=== PATIENT | female | born 1955 | race Two or more races ===

== ENCOUNTER 2018-08-24 19:09 | Inpatient (IN) | payer MEDICAID, OTHER ==
[~2018-08-24] VITALS: Ht 157.5 cm; Wt 121.7 kg
--- NOTE | 2018-08-24 19:30 | NUR ---
ACCOUNTING SYSTEM EXPERT: CHARGE/SUP AWARE OF FREQUENT FALLS AND UNSAFE TO BE IN TRAIGE. PER CHARGE/SUP NO ROOM AVAILABLE. PT EDUCATED ON FALL PRECAUTIONS AND ASKED TO REMAIN IN WHEELCHAIR.
--- NOTE | 2018-08-24 19:39 | NUR ---
Xray to wait for CT C-spine clearance
[2018-08-24 19:54] LABS: BASOPHILS # (AUTO) 0.03 x10^3/uL (0-0.1); BASOPHILS % (AUTO) 0 % (0-1); EOSINOPHILS # (AUTO) 0.06 x10^3/uL (0-0.4); EOSINOPHILS % (AUTO) 1 % (1-7); LYMPHOCYTES # (AUTO) 4.45 x10^3/uL (1-3.4); LYMPHOCYTES % (AUTO) 52 % (22-44); MD NO; MEAN CORPUSCULAR HEMOGLOBIN 31.2 pg (27.0-34.8); MEAN CORPUSCULAR HGB CONC 33.4 g/dL (32.4-35.8); MEAN CORPUSCULAR VOLUME 93.4 fL (80-100); MEAN PLATELET VOLUME 7.5 fL (7.4-10.4); MONOCYTES # (AUTO) 0.46 x10^3/uL (0.2-0.8); MONOCYTES % (AUTO) 5 % (2-9); NEUTROPHILS # (AUTO) 3.53 x10^3/uL (1.8-6.8); NEUTROPHILS % (AUTO) 41 % (42-75); PLATELET COUNT 143 x10^3/uL (130-400); RED CELL DISTRIBUTION WIDTH 13.4 % (9.6-15.2)
[2018-08-24 20:08] LABS: ALBUMIN 3.6 g/dL (3.4-5.0); ANION GAP 7 mmol/L (5-15); CALCIUM 8.8 mg/dL (8.5-10.1); CHLORIDE 98 mmol/L (98-107)
[2018-08-24 20:16] LABS: ALANINE AMINOTRANSFERASE 30 U/L (12-78); ALKALINE PHOSPHATASE 106 U/L (45-117); BILIRUBIN,TOTAL 0.5 mg/dL (0.2-1.0); CREATININE 0.82 mg/dL (0.55-1.02); TOTAL PROTEIN 7.5 g/dL (6.4-8.2); TROPONIN I < 0.015 ng/mL (0.000-0.045)
--- NOTE | 2018-08-24 21:56 | NUR ---
PROVIDER TO BEDSIDE FOR PT EVAL, PT ON CARDIAC AND VS MONITORING. PT TO HAVE STAIGHT CATH FOR URINE.
--- NOTE | 2018-08-24 22:00 | NUR ---
EKG DONE IN TRIAGE.
--- NOTE | 2018-08-24 22:03 | NUR ---
VERBAL ORDER FROM SHRUTHI WALKER TO STRAIGHT CATH FOR URINE INSTEAD OF CLEAN CATCH.
[2018-08-24 22:24] LABS: MICROSCOPIC NOT IND
[2018-08-24] MEDS ORDERED: HYDROcodone/APAP 5/325 TABLET PO ONE (22:30)
[2018-08-24] MEDS ORDERED: HYDROcodone/APAP 5/325 TABLET ONE (22:30)
--- NOTE | 2018-08-24 22:37 | NUR ---
PT AMBULATED IN HALLWAY WITH STEADY GAIT, THIS RN STAND BY ASSIST. PT STATES SHE USES A WALKER OR CANE AT HOME, PT USED THIS RN FOR ASSISTANCE PRN WHILE WALKING. PT REPORTS HEAD SPINNING WHILE WALKING. PT RECIEVED PAIN MEDS WHEN BACK INTO BED, SEE EMASelvin NIETO MD.
--- NOTE | 2018-08-24 22:46 | NUR ---
NOTIFIED OF ROAD TEST. PT STATES SHE LIVES AT HOME BY HERSELF AND IS ABLE TO SUCCESSFULLY COMPLETE ADL'S, PT STATES HER NEIGHBOR HELPS OUT ONCE IN A WHILE. NOTIFIED.
--- NOTE | 2018-08-24 22:48 | NUR ---
PT TO BE ADMITTED.
--- NOTE | 2018-08-24 23:21 | NUR ---
MD TO BEDSIDE FOR UPDATE. IV IN PLACE. PT AWAITING ROOM ASSINGMENT.
[2018-08-24] MEDS ORDERED: TOPI50TA8 PO (23:41)
[2018-08-24] MEDS ORDERED: METO25TA35 PO (23:41)
[2018-08-24] MEDS ORDERED: INSU100C5 SQ-INSULIN (23:41)
[2018-08-24] MEDS ORDERED: INSU100V8 SQ (23:41)
[2018-08-24] MEDS ORDERED: CEFD300C37 PO (23:41)
[2018-08-24] MEDS ORDERED: METF500T17 PO ×2 (23:41)
[2018-08-24] MEDS ORDERED: LEVO150T5 PO (23:41)
[2018-08-24] MEDS ORDERED: GABA100C PO (23:41)
[2018-08-24] MEDS ORDERED: FLEC50TA25 PO (23:41)
[2018-08-24] MEDS ORDERED: FURO20TA3 PO (23:41)
--- NOTE | 2018-08-24 23:42 | NUR ---
MED LIST UPDATED. NO CHANGE TO PT. PT PLEASANT AND COOPERATIVE. WILL MONITOR.
[2018-08-25] VITALS (7 sets, daily range): BP systolic 117–148; BP diastolic 71–88
--- NOTE | 2018-08-25 | NUR ---
REPORT TO CHAPIN DUMONT. PT TO GO TO ROOM.
[2018-08-25] MEDS ORDERED: IBUPROFEN 600 MG TABLET PO PRN (01:00)
[2018-08-25] MEDS ORDERED: ENALAPRILAT 1.25 MG/ML, 2ML IVPush PRN (01:00)
[2018-08-25] MEDS ORDERED: DEXTROSE 50%, 50ML SYRINGE IVPush PRN (01:00)
[2018-08-25] MEDS ORDERED: POLYETHYLENE GLYCOL 17 GM PACKET PO PRN (01:00)
[2018-08-25] MEDS ORDERED: GLUCAGON 1 MG IM PRN (01:00)
[2018-08-25] MEDS ORDERED: DOCUSATE 100 MG CAPSULE PO PRN (01:00)
[2018-08-25] MEDS ORDERED: NITROGLYCERIN 0.4 MG BOTTLE (25 TABS) SL PRN (01:00)
[2018-08-25] MEDS ORDERED: INSULIN GLARGINE 100 UNITS/ML, PEN SQ-INSULIN SCH ×2 (01:30→21:00)
[2018-08-25] MEDS: ENOXAPARIN 40 MG/0.4 ML SQ SCH (02:07)
[2018-08-25 02:45] LABS: HEMOGLOBIN A1C 9.9 % (4.2-6.3)
[2018-08-25 05:27] LABS: CHLORIDE 100 mmol/L (98-107)
[2018-08-25 05:38] LABS: ALANINE AMINOTRANSFERASE 25 U/L (12-78); ALBUMIN 3.1 g/dL (3.4-5.0); ALKALINE PHOSPHATASE 94 U/L (45-117); ANION GAP 9 mmol/L (5-15); BILIRUBIN,TOTAL 0.5 mg/dL (0.2-1.0); CALCIUM 8.7 mg/dL (8.5-10.1); CREATININE 0.93 mg/dL (0.55-1.02); TOTAL PROTEIN 6.5 g/dL (6.4-8.2); TROPONIN I < 0.015 ng/mL (0.000-0.045)
[2018-08-25] MEDS ORDERED: LEVOTHYROXINE 50 MCG TABLET ONE (09:34)
[2018-08-25] MEDS: FLECAINIDE 50MG TABLET PO SCH ×2 (09:36→21:04)
[2018-08-25] MEDS: FUROSEMIDE 20 MG TABLET PO SCH (10:26)
[2018-08-25] MEDS: INSULIN LISPRO 100 UNITS/ML, PEN SQ-INSULIN SCH ×4 (10:26→21:16)
[2018-08-25] MEDS: LEVOTHYROXINE 150 MCG TABLET PO SCH (10:26)
[2018-08-25] MEDS: FAMOTIDINE 20 MG TABLET PO SCH ×2 (10:27→21:04)
[2018-08-25] MEDS: GABAPENTIN 100 MG CAPSULE PO SCH ×3 (10:27→21:04)
[2018-08-25] MEDS: TOPIRAMATE 25 MG TABLET PO SCH ×2 (10:27→21:05)
[2018-08-25] MEDS: METOPROLOL TARTRATE 25 MG TABLET PO SCH ×2 (10:27→21:04)
[2018-08-25] MEDS: metFORMIN 500 MG TABLET PO SCH (10:27)
[2018-08-25] MEDS: SODIUM CHLORIDE FLUSH 10ML SYR IVF SCH ×2 (10:28→21:05)
[2018-08-25] MEDS: INSULIN ASPART 70/30 100U/ML, PEN SQ-INSULIN SCH ×3 (10:49→17:00)
[2018-08-25] MEDS: CEFDINIR 300 MG CAPSULE PO SCH (15:00)
[2018-08-25] MEDS: ACETAMINOPHEN 325 MG TABLET PO PRN (16:25)
[2018-08-25 17:44] LABS: CLOSTRIDIUM DIFFICILE ANTIGEN NEGATIVE; CLOSTRIDIUM DIFFICILE TOXIN NEGATIVE (Negative)
[2018-08-25] MEDS ORDERED: metFORMIN 500 MG TABLET PO SCH (21:00)
[2018-08-26] MEDS: ENOXAPARIN 40 MG/0.4 ML SQ SCH (01:16)
[2018-08-26 02:00] VITALS: BP 111/66
[2018-08-26] MEDS: CEFDINIR 300 MG CAPSULE PO SCH (03:03)
[2018-08-26 07:36] VITALS: BP 98/58
[2018-08-26] MEDS: TOPIRAMATE 25 MG TABLET PO SCH (09:08)
[2018-08-26] MEDS: INSULIN ASPART 70/30 100U/ML, PEN SQ-INSULIN SCH ×3 (09:08→16:14)
[2018-08-26] MEDS: INSULIN LISPRO 100 UNITS/ML, PEN SQ-INSULIN SCH ×3 (09:08→16:28)
[2018-08-26] MEDS: FAMOTIDINE 20 MG TABLET PO SCH (09:08)
[2018-08-26] MEDS: GABAPENTIN 100 MG CAPSULE PO SCH ×2 (09:08→16:13)
[2018-08-26] MEDS: METOPROLOL TARTRATE 25 MG TABLET PO SCH (09:09)
[2018-08-26] MEDS: FLECAINIDE 50MG TABLET PO SCH (09:09)
[2018-08-26] MEDS: FUROSEMIDE 20 MG TABLET PO SCH (09:09)
[2018-08-26] MEDS: LEVOTHYROXINE 150 MCG TABLET PO SCH (09:10)
[2018-08-26] MEDS: metFORMIN 500 MG TABLET PO SCH (09:10)
[2018-08-26] MEDS: SODIUM CHLORIDE FLUSH 10ML SYR IVF SCH (09:11)
[2018-08-26] MEDS ORDERED: IBUPROFEN 200 MG TABLET ONE (11:53)
[2018-08-26 12:35] VITALS: BP 119/51
[2018-08-26] MEDS ORDERED: INSU100V8 SQ (15:18)
[2018-08-26] MEDS: ACETAMINOPHEN 325 MG TABLET PO PRN (16:27)
== END 2018-08-26 17:20 | disposition home or self-care (01) | DRG 914 ==
LOC: ED 22:59 → 5SO 23:04 → ED 23:24
PROVIDERS: ADMIT Hospitalist; ATTEND Hospitalist
DX: S09.90XA Unspecified injury of head, initial encounter (principal); E03.9 Hypothyroidism, unspecified; E11.65 Type 2 diabetes mellitus with hyperglycemia; I10 Essential (primary) hypertension; I48.0 Paroxysmal atrial fibrillation; J44.9 Chronic obstructive pulmonary disease, unspecified; K21.9 Gastro-esophageal reflux disease without esophagitis; M79.7 Fibromyalgia; R55 Syncope and collapse; W18.39XA Other fall on same level, initial encounter; Y93.89 Activity, other specified; Z88.2 Allergy status to sulfonamides; Z88.8 Allergy status to other drugs, medicaments and biological substances; Z79.4 Long term (current) use of insulin; Z87.891 Personal history of nicotine dependence; Y92.89 Other specified places as the place of occurrence of the external cause
CPT/HCPCS: 36415; 70450; 71045; 72125; 80053; 81003; 82962; 83036; 83690; 83880; 84443; 84484; 85025; 87324; 93005; 93306; 93880; G0378; J1650; J1815